=== PATIENT | male | born 1945 | race Caucasian/White ===

== ENCOUNTER 2016-11-14 16:21 | Inpatient (IN) | payer MEDICARE, BC ==
[~2016-11-14] VITALS: Ht 182.9 cm; Wt 84.6 kg
[2016-11-14 17:23] LABS: MEAN CELL VOLUME 88 fl (80.0-100.0); MEAN CORPUSCULAR HGB CONC 35 g/dl (33.0-37.0); MEAN PLATELET VOLUME 8.6 fl (7.4-10.4); PLATELET COUNT 237 K/mm3 (130-400); RED BLOOD COUNT 6.54 M/mm3 (4.20-5.60); REDCELL DISTRIBUTION WIDTH-CV 13.4 % (11.5-14.5); WHITE BLOOD COUNT 13.3 K/mm3 (4.8-10.8)
[2016-11-14 17:28] LABS: HEMATOCRIT 57.8 % (42.0-52.0); MEAN CORPUSCULAR HEMOGLOBIN 31 pg (27.0-31.0)
[2016-11-14 17:32] LABS: ADD PATHOLOGY DIFF REVIEW NO
[2016-11-14 17:35] LABS: ADJUSTED CALCIUM 9.4 mg/dL (8.4-10.2); ALANINE AMINOTRANSFERASE 37 U/L (21-72); ALBUMIN 4.6 gm/dL (3.5-5.0); ALKALINE PHOSPHATASE 90 U/L (50-136); ANION GAP 15 mmol/L (7-16); BLOOD UREA NITROGEN 52 mg/dL (9-20); CALCIUM 9.9 mg/dL (8.4-10.2); CARBON DIOXIDE 20 mmol/L (22-30); CHLORIDE 98 mmol/L (98-107); CREATININE, serum 1.94 mg/dL (0.66-1.25); GLUCOSE 105 mg/dL (74-106); SODIUM 134 mmol/L (137-145); TOTAL PROTEIN 8.7 gm/dL (6.4-8.2)
[2016-11-14 17:40] LABS: HYALINE CAST >12 /lpf; PH 5 (5-8); SQUAMOUS EPITHELIAL 0-2 /hpf; URINE APPEARANCE Hazy; URINE BACTERIA None Seen /hpf; URINE BILIRUBIN Negative (NEGATIVE); URINE BLOOD 1+ (NEGATIVE); URINE COLOR Yellow; URINE GLUCOSE Negative (NEGATIVE); URINE KETONE Negative (NEGATIVE); URINE RBC 0-2 /hpf; URINE UROBILINOGEN Negative (NEGATIVE); URINE WBC 0-2 /hpf
[2016-11-14 17:52] LABS: TROPONIN-I < 0.012 ng/mL (0.000-0.034)
[2016-11-14] MEDS ORDERED: COZAAR 25MG25 MG/TAB PO (18:03)
[2016-11-14] MEDS ORDERED: ULTRAM 50MG TAB50 MG PO (18:04)
[2016-11-14] MEDS ORDERED: ASPIRIN 81M81 MG/TA2 PO (18:05)
[2016-11-14 18:13] LABS: LIPASE 5909 U/L (23-300)
[2016-11-14 18:21] LABS: BAND 15 % (0-10); NEUTROPHILS 60 % (42.0-75.2); TOTAL CELLS COUNTED 100
[2016-11-14 18:24] LABS: PLATELET ESTIMATE NORMAL (NORMAL)
[2016-11-14] MEDS ORDERED: TYLENOL 500MG500 MG PO (20:11)
[2016-11-14 22:54] VITALS: BP 106/60; PULSE 62; TEMP 98.7
[2016-11-15 05:00] VITALS: BP 110/61; PULSE 59; TEMP 97.7
[2016-11-15 06:53] LABS: BASO # 0.1 (0.0-0.2); BASO % 0.5 % (0.0-2.0); EOS # 0.1 (0.0-0.7); EOS % 0.7 % (0-4.0); GRAN # 7.3 (1.4-6.5); GRAN % 66.8 % (42.2-75.2); HEMATOCRIT 46.4 % (42.0-52.0); LYMPH % 17.9 % (20.0-51.0); MEAN CELL VOLUME 90 fl (80.0-100.0); MEAN CORPUSCULAR HEMOGLOBIN 31 pg (27.0-31.0); MEAN CORPUSCULAR HGB CONC 34 g/dl (33.0-37.0); MEAN PLATELET VOLUME 8.8 fl (7.4-10.4); MONO # 1.5 (0.1-0.6); MONO % 13.5 % (1.7-9.3); PLATELET COUNT 196 K/mm3 (130-400); RED BLOOD COUNT 5.13 M/mm3 (4.20-5.60); REDCELL DISTRIBUTION WIDTH-CV 13.2 % (11.5-14.5)
[2016-11-15 06:57] LABS: HEMOGLOBIN 15.7 g/dl (13.5-18.0)
[2016-11-15 07:04] LABS: CALCIUM 8.5 mg/dL (8.4-10.2); CREATININE, serum 1.39 mg/dL (0.66-1.25); PHOSPHOROUS 3.1 mg/dL (2.5-4.5); POTASSIUM 3.8 mmol/L (3.4-5.0)
[2016-11-15 08:42] VITALS: BP 127/61; PULSE 76; TEMP 97.5
[2016-11-15 11:41] VITALS: BP 11/62; BP 111/62; PULSE 65; TEMP 98.1
[2016-11-15 16:00] VITALS: BP 139/74; PULSE 83; TEMP 97.7
[2016-11-15 21:39] VITALS: BP 169/75; PULSE 77; TEMP 98.2
[2016-11-16 01:04] VITALS: BP 183/75; PULSE 79; TEMP 97.9
[2016-11-16 04:54] VITALS: BP 133/70; PULSE 65; TEMP 97.9
[2016-11-16 07:36] VITALS: BP 161/80; PULSE 70; TEMP 98.1
[2016-11-16 08:17] LABS: BASO # 0.1 (0.0-0.2); BASO % 0.6 % (0.0-2.0); EOS # 0.1 (0.0-0.7); EOS % 1.4 % (0-4.0); GRAN # 5.4 (1.4-6.5); GRAN % 61.6 % (42.2-75.2); HEMATOCRIT 46.3 % (42.0-52.0); HEMOGLOBIN 15.7 g/dl (13.5-18.0); LYMPH # 2.1 (1.2-3.4); LYMPH % 23.8 % (20.0-51.0); MEAN CELL VOLUME 90 fl (80.0-100.0); MEAN CORPUSCULAR HEMOGLOBIN 31 pg (27.0-31.0); MEAN CORPUSCULAR HGB CONC 34 g/dl (33.0-37.0); MEAN PLATELET VOLUME 8.6 fl (7.4-10.4); PLATELET COUNT 177 K/mm3 (130-400); RED BLOOD COUNT 5.13 M/mm3 (4.20-5.60); REDCELL DISTRIBUTION WIDTH-CV 12.8 % (11.5-14.5); WHITE BLOOD COUNT 8.7 K/mm3 (4.8-10.8)
[2016-11-16 08:26] LABS: CREATININE, serum 1.04 mg/dL (0.66-1.25); POTASSIUM 4.1 mmol/L (3.4-5.0)
[2016-11-16 11:08] VITALS: BP 136/64; PULSE 69; TEMP 97.4
[2016-11-16] MEDS ORDERED: CIPRO 500MG TA500 MG PO (12:50)
[2016-11-16] MEDS ORDERED: BENTYL 10MG10 MG/CAP PO (12:51)
== END 2016-11-16 14:39 | disposition home or self-care (01) | DRG 684 ==
LOC: COL.ER 16:21 → MEDICAL 18:52 → EDBEDREQ 19:29 → MEDICAL 11-16 14:39
PROVIDERS: Emergency Medicine; Nurse Practitioner
DX: N17.9 Acute kidney failure, unspecified (principal); E86.0 Dehydration; K52.9 Noninfective gastroenteritis and colitis, unspecified; I16.0 Hypertensive urgency
CPT/HCPCS: 99239; J0696; J2270; J2405; J3480; J7030

== ENCOUNTER → 2020-08-03 | Outpatient (CLI) | payer MEDICARE, BC ==
[~2020-08-03] MED LIST: ASPIRIN 81M81 MG/TA2 PO; BENTYL 10MG10 MG/CAP PO; CIPRO 500MG TA500 MG PO; COZAAR 25MG25 MG/TAB PO; TYLENOL 500MG500 MG PO; ULTRAM 50MG TAB50 MG PO
== END ==
LOC: COL.RAD 11:29
DX: M25.551 Pain in right hip (principal)

== ENCOUNTER → 2020-09-04 | Outpatient (CLI) | payer MEDICARE, BC | LOC: COL.RAD 11:37 | DX: M25.551 Pain in right hip (principal) ==

== ENCOUNTER 2023-04-18 13:37 | Inpatient (IN) | payer MEDICARE, BC ==
[~2023-04-18] VITALS: Ht 177.8 cm; Wt 95.0 kg
[2023-04-22] VITALS (9 sets, daily range): BP systolic 119–176; BP diastolic 65–90; PULSE 60–69; TEMP 97.6–98.2
[2023-04-22] MEDS ORDERED: Magnes Hydrox (MOM) 80 MG/ML 30 ML CUP PO PRN (09:30)
[2023-04-22] MEDS ORDERED: NS Flush 10 ML SYRINGE PRN ICA (09:30)
[2023-04-22] MEDS ORDERED: Ondansetron 4 MG/2 ML VIAL IV PRN (09:30)
[2023-04-22] MEDS ORDERED: Bisacodyl 5 MG TAB PO PRN (09:30)
[2023-04-22] MEDS ORDERED: LASIX 20MG TABL20 MG PO (10:24)
[2023-04-22] MEDS ORDERED: COZAAR100 MG PO (11:01)
[2023-04-22 11:02] LABS: BASO # 0.1 K/mm3 (0.0-0.2); BASO % 1.1 % (0.0-2.0); EOS # 0.5 K/mm3 (0.0-0.7); EOS % 4.9 % (0.0-4.0); GRAN # 6.1 K/mm3 (1.4-6.5); GRAN % 60.5 % (42.2-75.2); HEMATOCRIT 50.5 % (42.0-52.0); HEMOGLOBIN 16.9 g/dl (13.5-18.0); LYMPH # 2.3 K/mm3 (1.2-3.4); LYMPH % 23.3 % (20.0-51.0); MEAN CELL VOLUME 91 fl (80.0-100.0); MEAN CORPUSCULAR HEMOGLOBIN 31 pg (27-31); MEAN CORPUSCULAR HGB CONC 34 g/dl (33.0-37.0); MEAN PLATELET VOLUME 8.7 fl (7.4-10.4); MONO % 9.5 % (1.7-9.3); PLATELET COUNT 201 K/mm3 (130-400); RED BLOOD COUNT 5.54 M/mm3 (4.20-5.60); REDCELL DISTRIBUTION WIDTH-CV 13.8 % (11.5-14.5)
[2023-04-22] MEDS ORDERED: ELIQUIS 5MG PO (11:03)
[2023-04-22] MEDS ORDERED: CATAPRES 0.1MG0.1 MG PO (11:04)
[2023-04-22] MEDS ORDERED: TOPROL XL 25MG25 MG PO (11:04)
[2023-04-22] MEDS ORDERED: cloNIDine 0.1 MG TAB PO SCH (11:07)
[2023-04-22] MEDS ORDERED: Losartan 50 MG TAB PO SCH (11:15)
[2023-04-22] MEDS ORDERED: traMADol 50 MG TAB PO PRN (11:15)
[2023-04-22] MEDS ORDERED: Apixaban 5 MG TAB PO SCH (11:15)
[2023-04-22] MEDS ORDERED: Acetaminophen 500 MG TAB PO PRN (11:15)
[2023-04-22] MEDS ORDERED: Furosemide 20 MG TAB PO SCH (11:15)
[2023-04-22 11:24] LABS: ALBUMIN 3.8 gm/dL (3.4-4.8); BILIRUBIN,TOTAL 0.8 mg/dL (0.2-1.2); CALCIUM 10.1 mg/dL (8.4-10.2); CREATININE, serum 1.31 mg/dL (0.72-1.25); INR 1.2 (0.8-3.0); MAGNESIUM 1.9 mg/dL (1.6-2.6); PROTHROMBIN TIME 13.1 SECONDS (9.7-12.8); TOTAL PROTEIN 7.3 gm/dL (6.2-8.1)
[2023-04-22] MEDS ORDERED: Gadoterate 20 ML VIAL IV ONE (12:21)
[2023-04-22] MEDS ORDERED: Sotalol 80 MG TAB PO BID PO SCH ×2 (13:00→21:00)
[2023-04-22] MEDS ORDERED: amLODIPine 5 MG TAB PO SCH (13:02)
[2023-04-22] MEDS ORDERED: NS Flush 10 ML SYRINGE BID ICA SCH (21:00)
[2023-04-22] MEDS ORDERED: Melatonin 3 MG TAB PO PRN (21:00)
--- NOTE | 2023-04-22 21:30 | NUR ---
Patient resting in chiar. Denies any pain or needs at this time. Assessment complete. IV in left AC flushes easily with no complicaitons. Call light and personal items in reach. Bed in low position.
[2023-04-23] VITALS (13 sets, daily range): BP systolic 127–184; BP diastolic 69–104; PULSE 60–71; TEMP 97.6–98.4
--- NOTE | 2023-04-23 06:15 | NUR ---
Patient resting in bed with eyes closed. No signs of pain or needs at this time. No changes over night. Patient ambulated in the hallway. Call light and personal items in reach. Bed in low position.
[2023-04-23] MEDS ORDERED: hydrALAZINE 25 MG TAB PO SCH (09:28)
[2023-04-23] MEDS ORDERED: MOBIC15 MG PO (10:52)
--- NOTE | 2023-04-23 12:13 | NUR ---
dry kiln worker met with pt and daughter, Nisha [phone] to discuss discharge planning. Patient lives alone in [place] as his recently . Pt sees Dr. Morgan and obtains medications from [facility] with no difficulties. Pt is independent with ADLS and uses a CPAP (on Friday) and a walking stick. Pt reports he ambulates fine and denies PT/OT need. SW noted a consult requesting info on DPOA-HC. SW provided who legal NOK is, two daughters. Pt was provided a copy and would like to discuss. He would like to clarify DNR with his two daughters. SW advised this would further be a hospitalist discussion if decided DNR. GISSELL spoke with ANGELY Nam who reports there are no PT/OT concerns. Discharge Plan: Home
--- NOTE | 2023-04-23 13:07 | NUR ---
Initial visit; Patient was so friendly and when Refrigeration Operator said she was so glad he was here (meaning in his room) he said that "He was too!" A good sense of humor and very thankful for the medical trial and being kept in Refrigeration Operator's prayers.
--- NOTE | 2023-04-23 21:20 | NUR ---
Patient assessed around 2049. Alert and oriented, and able to make needs known. Denies having pain and discomfort. Patient ambulated in halls. Continues to be paced on telemetry. Voices no questions, needs, or concerns at this time. In recliner with call light within reach.
[2023-04-24 00:05] VITALS: BP_SYST 143
[2023-04-24 03:35] VITALS: BP 137/76; PULSE 61; TEMP 98.4
[2023-04-24 04:19] VITALS: BP_SYST 137
--- NOTE | 2023-04-24 06:36 | NUR ---
Patient's QTC this morning is 471. Has voiced no questions, needs, or concerns this shift. In bed with call light within reach.
[2023-04-24 08:14] VITALS: BP 157/80; PULSE 91; TEMP 97.9
--- NOTE | 2023-04-24 08:30 | NUR ---
PATIENT DROPPED PILLS ON FLOOR. WASTED 80MG SOTOLAL, LOSARTAN 100MG, HYDRALAZINE 50 MG, FUROSEMIDE 20 MG, ELIQUIS 5MG. ALL WASTED IN THE PYXIS. REMOVED DOSES FOR SECOND TIME.
[2023-04-24 09:03] LABS: BASO # 0.1 K/mm3 (0.0-0.2); BASO % 0.9 % (0.0-2.0); EOS # 0.5 K/mm3 (0.0-0.7); EOS % 4.6 % (0.0-4.0); GRAN # 6.3 K/mm3 (1.4-6.5); GRAN % 63.5 % (42.2-75.2); LYMPH # 2.2 K/mm3 (1.2-3.4); LYMPH % 22.3 % (20.0-51.0); MEAN CELL VOLUME 90 fl (80.0-100.0); MEAN CORPUSCULAR HGB CONC 35 g/dl (33.0-37.0); MEAN PLATELET VOLUME 8.3 fl (7.4-10.4); MONO # 0.8 K/mm3 (0.1-0.6); MONO % 7.7 % (1.7-9.3); PLATELET COUNT 210 K/mm3 (130-400); RED BLOOD COUNT 5.96 M/mm3 (4.20-5.60); REDCELL DISTRIBUTION WIDTH-CV 13.8 % (11.5-14.5)
[2023-04-24 09:08] LABS: HEMATOCRIT 53.5 % (42.0-52.0); HEMOGLOBIN 18.5 g/dl (13.5-18.0); MEAN CORPUSCULAR HEMOGLOBIN 31 pg (27-31)
[2023-04-24 09:17] LABS: CALCIUM 10.1 mg/dL (8.4-10.2); CREATININE, serum 1.36 mg/dL (0.72-1.25); POTASSIUM 4.2 mmol/L (3.5-4.5)
[2023-04-24 09:45] VITALS: BP_SYST 157
[2023-04-24] MEDS ORDERED: BETAPACE 80MG80 MG PO (11:02)
[2023-04-24] MEDS ORDERED: APRESOLINE50 MG PO (11:02)
--- NOTE | 2023-04-24 13:16 | NUR ---
PATIENT RECEIVED DISCHARGE PAPERWORK,INCLUDING FOLLOW UP APPOINTMENTS AND NEW MEDICATIONS ADDED. ACKNOWEDLGED UNDERSTANDING. DAUGHTER WAS IN THE ROOM ALSO. IV DISCONTINUED. TELEMETRY DISCONTINUED. NURSING TOOK PATIENT AND BELONGINGS DOWN TO PATIENT ENTRANCE TO DISCHARGE. NO ISSUES.
== END 2023-04-24 13:00 | disposition home or self-care (01) | DRG 310 ==
LOC: MEDICAL 04-22 08:45
PROVIDERS: ADMIT Internal Medicine Cardiovascular Disease
DX: I48.91 Unspecified atrial fibrillation (principal); Z96.612 Presence of left artificial shoulder joint; I11.0 Hypertensive heart disease with heart failure; I50.9 Heart failure, unspecified; I35.1 Nonrheumatic aortic (valve) insufficiency; Z95.0 Presence of cardiac pacemaker; Z86.73 Personal history of transient ischemic attack (TIA), and cerebral infarction without residual deficits
CPT/HCPCS: A9575